=== PATIENT | male | born 1990 | race African-American/Black ===

== ENCOUNTER 2018-03-17 20:29 | Emergency (ER) | payer SELFPAY ==
[2018-03-17] MEDS ORDERED: Lidocaine 1% w/Epinephrine 1:100K 20 ML VIAL ONE (20:57)
[2018-03-17] MEDS ORDERED: Adacel (T-DAP) 0.5 ML VIAL ONE (21:19)
[2018-03-17] MEDS ORDERED: Ketorolac Tromethamine 60 MG/2 ML VIAL ONE (21:19)
== END 2018-03-17 21:41 | disposition home or self-care (01) ==
LOC: ERS 20:29
DX: L02.01 Cutaneous abscess of face (principal); J45.909 Unspecified asthma, uncomplicated; F17.200 Nicotine dependence, unspecified, uncomplicated
CPT/HCPCS: 10060; 87070; 87077; 87186; 87205; 90715; J1885; J2001

== ENCOUNTER 2018-03-19 14:38 | Emergency (ER) | payer SELFPAY | END 2018-03-19 15:49 | disposition left against medical advice (07) | LOC: ERS 14:38 | DX: Z53.21 Procedure and treatment not carried out due to patient leaving prior to being seen by health care provider (principal) ==